=== PATIENT | female | born 1995 | race Caucasian/White ===

== ENCOUNTER 2018-08-10 20:32 | Emergency (ER) | payer OTHER ==
[2018-08-10 21:18] VITALS: BP 128/64
--- NOTE | 2018-08-10 22:06 | RADIOLOGY REPORT (SQ) ---
EXAM DESCRIPTION: Right ankle x-rays, three views. August 10 2018 at 9:35 PM CLINICAL HISTORY: fell in hole heard pop COMPARISON: None FINDINGS: AP, lateral and oblique views of the right ankle were submitted. There is no discrete acute fracture or dislocation. The ankle mortise is intact in these non stress views. Bone mineralization is within normal limits. There is no radiopaque foreign body material. There is soft tissue swelling. IMPRESSION: No acute fracture or dislocation. Soft tissue swelling.
[2018-08-11] MEDS ORDERED: HYDROCODONE/ACETAMINOPHEN 5-325 MG (6 TAB/ER DISP) PO PRN (00:01)
--- NOTE | 2018-08-11 00:03 | ER Document Report ---
HPI - HPI Patient complains to provider of: Right ankle injury Onset: This evening Onset/Duration: Sudden Quality of pain: Achy Pain Level: 2 Context: Patient states she was walking and accidentally stepped in a hole. Patient complains of right lateral ankle pain. Associated Symptoms: Other - Right ankle pain Exacerbated by: Standing, Movement, Walking Relieved by: Denies Similar symptoms previously: No Recently seen / treated by doctor: No - ROS ROS below otherwise negative: Yes Systems Reviewed and Negative: Yes All other systems reviewed and negative - CONSTITUTIONAL Constitutional: DENIES: Fever, Chills - REPRODUCTIVE LMP: 07/20 - MUSCULOSKELETAL Musculoskeletal: REPORTS: Extremity pain - R ankle, Swelling - DERM Skin Color: Normal Past Medical History - General Information source: Patient - Social History Smoking Status: Never Smoker Frequency of alcohol use: None Drug Abuse: None Occupation: None Family History: Reviewed & Not Pertinent Patient has suicidal ideation: No Patient has homicidal ideation: No - Medical History Medical History: Negative Renal/ Medical History: Denies: Hx Peritoneal Dialysis Past Surgical History: Reports: Hx Orthopedic Surgery Vertical Provider Document - CONSTITUTIONAL Agree With Documented VS: Yes Exam Limitations: No Limitations General Appearance: WD/WN, No Apparent Distress - INFECTION CONTROL TRAVEL OUTSIDE OF THE [place] IN LAST 30 DAYS: No - HEENT HEENT: Atraumatic, Normocephalic - NECK Neck: Normal Inspection - RESPIRATORY Respiratory: No Respiratory Distress - CARDIOVASCULAR Pulses: Normal: Dorsalis pedis - MUSCULOSKELETAL/EXTREMETIES Musculoskeletal/Extremeties: MAEW, Tender - Right ankle tenderness over lateral malleolar area with 2+ edema, no deformity, Edema. negative: Eccymosis - NEURO Level of Consciousness: Awake, Alert, Appropriate Motor/Sensory: No Motor Deficit - DERM Integumentary: Warm, Dry, No Rash Course - Vital Signs Vital signs: Temp Pulse Resp BP Pulse Ox 99.6 F 72 16 128/64 H 99 08/10/18 21:17 08/10/18 21:17 08/10/18 21:17 08/10/18 21:17 08/10/18 21:17 - Diagnostic Test Radiology reviewed: Reports reviewed Procedures - Immobilization Right Ankle Pre-Proc Neuro Vasc Exam: Normal Immobilizer type: Ankle stirrup Performed by: RN Post-Proc Neuro Vasc Exam: Normal Alignment checked and good: Yes Discharge - Discharge Clinical Impression: Right ankle sprain Qualifiers: Encounter type: initial encounter Involved ligament of ankle: unspecified ligament Qualified Code(s): S93.401A - Sprain of unspecified ligament of right ankle, initial encounter Condition: Stable Disposition: HOME, SELF-CARE Instructions: Use of Crutches ([facility]), Ice & Elevation ([facility]), Oral Narcotic Medication ([facility]), Sprained Ankle ([facility]) Additional Instructions: Return immediately for any new or worsening symptoms Followup with your primary care provider, call tomorrow to make a followup appointment Weightbearing as tolerated Follow-up with orthopedics for any persistent pain or problems Prescriptions: Naproxen [Naprosyn 250 Nmg Tablet] 1 tab PO BID #14 tablet Referrals: ANJALI CABELLO MD [[facility]] - Follow up as needed [facility] [Provider Group] - Follow up as needed
== END 2018-08-11 00:23 | disposition home or self-care (01) ==
LOC: ER 20:32
DX: S93.401A Sprain of unspecified ligament of right ankle, initial encounter (principal); X58.XXXA Exposure to other specified factors, initial encounter
CPT/HCPCS: 99283; 73610; L1902